=== PATIENT | female | born 1990 | race Hispanic/Latino ===

== ENCOUNTER 2020-09-19 16:49 | Outpatient (CLI) | payer MEDICAID, OTHER ==
[2020-09-19 17:40] LABS: Bilirubin,Urine NEG (Negative); Blood,Urine NEG (Negative); Color,Urine Straw (Yellow); Mucus,Urine FEW /HPF; Protein,Urine <15 mg/dL mg/dL (Negative); Urobilinogen,Urine < 2.0 mg/dL (<2.0); WBC,Urine < 1.0 /HPF (0.0-6.0)
[2020-09-19 17:46] VITALS: BP 127/67
[2020-09-19] MEDS ORDERED: LACTATED RINGERS 1,000 ML IV SCH (18:00)
[2020-09-19] MEDS ORDERED: TERBUTALINE 1 MG/1 ML INJ ONE (18:51)
[2020-09-19] MEDS ORDERED: TERBUTALINE 1 MG/1 ML INJ SUB-Q ONE (18:55)
[2020-09-19] MEDS ORDERED: ACETAMINOPHEN 500 MG TAB PO ONE (20:31)
== END 2020-09-19 20:05 | disposition home or self-care (01) ==
LOC: APU 16:49 → TRG 16:49
PROVIDERS: ATTEND Obstetrics & Gynecology
DX: O62.9 Abnormality of forces of labor, unspecified (principal); O99.513 Diseases of the respiratory system complicating pregnancy, third trimester; J45.909 Unspecified asthma, uncomplicated; O99.343 Other mental disorders complicating pregnancy, third trimester; F41.9 Anxiety disorder, unspecified; F32.9 Major depressive disorder, single episode, unspecified; Z87.891 Personal history of nicotine dependence; Z3A.29 29 weeks gestation of pregnancy
CPT/HCPCS: 36415; 59025; 81001; 84112; 96361; 96374; J3105; J7120; 96360; 96372

== ENCOUNTER 2020-09-26 22:03 | Outpatient (CLI) | payer MEDICAID ==
[2020-09-26 22:41] VITALS: BP 103/57
[2020-09-26 23:39] LABS: Bacteria,Urine 1+ /HPF (Negative); Bilirubin,Urine NEG (Negative); Blood,Urine NEG (Negative); Color,Urine Yellow (Yellow); Mucus,Urine FEW /HPF; Protein,Urine <15 mg/dL mg/dL (Negative); Urobilinogen,Urine < 2.0 mg/dL (<2.0)
== END 2020-09-27 00:50 | disposition home or self-care (01) ==
LOC: TRG 22:03 → APU 22:04 → TRG 09-27 00:50
PROVIDERS: ATTEND Obstetrics & Gynecology
DX: Z34.93 Encounter for supervision of normal pregnancy, unspecified, third trimester (principal); Z3A.30 30 weeks gestation of pregnancy
CPT/HCPCS: 36415; 59025; 81001; 82731

== ENCOUNTER 2020-10-29 11:30 | Outpatient (CLI) | payer MEDICAID ==
[2020-10-29] MEDS ORDERED: LACTATED RINGERS 500 ML IV ONE (12:17)
[2020-10-29 13:12] VITALS: BP 107/56
[2020-10-29 13:38] LABS: Basophils % (Auto) 0.3 % (0.0-1.8); Eosinophils # (Auto) 0.1 K/mm3 (0.0-0.4); Eosinophils % (Auto) 0.5 % (0.0-4.3); Hematocrit 29.5 % (30.3-42.9); Hemoglobin 9.6 gm/dl (10.1-14.3); Lymphocytes # (Auto) 1.7 K/mm3 (1.2-5.4); Lymphocytes % (Auto) 14.1 % (13.4-35.0); Mean Corpuscular HGB Conc 33 % (30-34); Mean Corpuscular Volume 79 fl (79-97); Monocytes # (Auto) 0.8 K/mm3 (0.0-0.8); Monocytes % (Auto) 6.6 % (0.0-7.3); Platelet Count 305 K/mm3 (140-440); Red Blood Count 3.74 M/mm3 (3.65-5.03); Red Cell Distribution Width 14.7 % (13.2-15.2)
--- NOTE | 2020-10-29 13:39 | XRay Report ---
CHEST 1 VIEW 10/29/2020 12:31 PM INDICATION / CLINICAL INFORMATION: chest pain with coughing. COMPARISON: None available. FINDINGS: SUPPORT DEVICES: None. HEART / MEDIASTINUM: No significant abnormality. LUNGS / PLEURA: No significant pulmonary or pleural abnormality. No pneumothorax. ADDITIONAL FINDINGS: No significant additional findings. IMPRESSION: 1. No acute findings. Signer Name: Marcelo Small MD Signed: 10/29/2020 1:34 PM Workstation Name: [id number]
[2020-10-29 13:42] LABS: Bacteria,Urine 2+ /HPF (Negative); Bilirubin,Urine NEG (Negative); Blood,Urine NEG (Negative); Color,Urine Colorless (Yellow); Protein,Urine <15 mg/dL mg/dL (Negative); Urobilinogen,Urine < 2.0 mg/dL (<2.0)
[2020-10-29 13:45] LABS: WBC,Urine < 1.0 /HPF (0.0-6.0)
== END 2020-10-29 13:40 | disposition home or self-care (01) ==
LOC: APU 11:30 → TRG 11:30 → APU 11:41 → TRG 13:40
PROVIDERS: ATTEND Obstetrics & Gynecology
DX: Z34.93 Encounter for supervision of normal pregnancy, unspecified, third trimester (principal); Z3A.35 35 weeks gestation of pregnancy
CPT/HCPCS: 36415; 59025; 71045; 81001; 85025

== ENCOUNTER 2020-11-16 16:14 | Outpatient (CLI) | payer MEDICAID | END 2020-11-16 19:20 | disposition home or self-care (01) | LOC: TRG 16:14 → APU 16:57 | CPT/HCPCS: 59025 ==

== ENCOUNTER 2020-11-25 13:00 | Outpatient (CLI) | payer MEDICAID ==
[2020-11-25 13:55] VITALS: BP 112/74
--- NOTE | 2020-11-25 15:54 | Event Note ---
Date: 11/25/20 Pt request to be examined by this provider and not the system admin or the RN in [place]. Exam is 360/-2 essentially unchanged from office visit 4 days ago. BPP is now 10/10 with JANNY of 12 on prelim readings. Will d/c home with labor precautions. Sono and exam d/w pt. audience coordinator as well as the Equipment Maint Tech [place] aware of pt exam and d/c to home.
--- NOTE | 2020-11-25 16:13 | Ultrasound Report ---
ULTRASOUND BIOPHYSICAL PROFILE INDICATION / CLINICAL INFORMATION: Pelvic pain in female. well-being evaluation COMPARISON: None available. FINDINGS: BREATHING MOVEMENT = 2 GROSS BODY MOVEMENT = 2 TONE = 2 QUALITATIVE AMNIOTIC FLUID VOLUME = 2 TOTAL BIOPHYSICAL SCORE = 12/16 AMNIOTIC FLUID INDEX (cm) = 12.2 PRESENTATION: Cephalic. HEART RATE (beats per minute): 131 IMPRESSION: 1. biophysical profile = 12/16 ULTRASOUND OBSTETRIC Indication: Pelvic pain in Findings: There is a single intrauterine . BPD = 8.3 cm = 33 weeks, 2 day(s). Head circumference = 32 cm = 35 weeks, 5 day(s). Abdominal circumference = 29.6 cm = 33 weeks, 4 day(s). Femur length = 6.9 cm = 35 weeks, 4 day(s). Overall estimated sonographic age = 34 weeks, 4 day(s). heart rate is 131 beats per minute. Estimated weight is 2409 grams position is cephalic. Cervix appears closed with a length of 1.8 cm and is decreased. movement is present. Impression: 1. Single living intrauterine with estimated sonographic age of 34 weeks, 4 day(s). 2. Cervical length of only 1.8 cm Signer Name: Owen Sullivan MD Signed: 11/25/2020 4:08 PM Workstation Name: [id number]
== END 2020-11-25 15:55 | disposition home or self-care (01) ==
LOC: TRG 13:00 → APU 13:02 → TRG 15:55
PROVIDERS: ATTEND Obstetrics & Gynecology
DX: O47.1 False labor at or after 37 completed weeks of gestation (principal); O42.919 Preterm premature rupture of membranes, unspecified as to length of time between rupture and onset of labor, unspecified trimester; Z3A.38 38 weeks gestation of pregnancy
CPT/HCPCS: 36415; 59025; 76816; 76819; 84112

== ENCOUNTER 2020-12-05 13:43 | Inpatient (IN) | payer MEDICAID ==
[2020-12-05] MEDS ORDERED: LOPERAMIDE 2 MG CAP PO PRN (13:56)
[2020-12-05] MEDS ORDERED: LIDOCAINE (2%) 20 MG/1 ML VIAL 20 ML MDV INFILTRATI ONE (13:56)
[2020-12-05] MEDS ORDERED: OXYTOCIN 10 UNIT/1 ML INJ IM PRN (13:56)
[2020-12-05] MEDS ORDERED: CARBOPROST TROMETHAMINE 250 MCG/1 ML INJ IM PRN (13:56)
[2020-12-05] MEDS ORDERED: MINERAL OIL 30 ML ORAL LIQD PO PRN (13:56)
[2020-12-05] MEDS ORDERED: METHYLERGONOVINE MALEATE 0.2 MG/ML VIAL IM PRN (13:56)
[2020-12-05] MEDS ORDERED: miSOPROStol 200 MCG TAB PR PRN (13:56)
[2020-12-05] MEDS ORDERED: ePHEDrine SULFATE 50 MG/1 ML INJ IV PRN ×2 (13:56→16:26)
[2020-12-05] MEDS ORDERED: TERBUTALINE 1 MG/1 ML INJ SUB-Q PRN (13:56)
[2020-12-05] MEDS ORDERED: fentaNYL 100 MCG/2 ML INJ IV ONE (13:56)
[2020-12-05] MEDS ORDERED: OXYTOCIN DRIP 30 UNITS/500 ML BAG IV SCH ×3 (14:00→23:00)
--- NOTE | 2020-12-05 14:17 | History and Physical Report ---
History of Present Illness Date of examination: 12/05/20 Date of admission: 12/05/20 13:43 Chief complaint: contractions History of present illness: Pt presents c/o contractions for weeky visit. She was noted to be 4/60/-1 to 0 in the office. She was sent over for delivery. EDC Confirmation: 12/03/2020 Gestational Age: 40.2 weeks Past History : 5 Term Births: 1 Premature Births: 0 Living Children: 1 Para: 1 Mult. Births: 0 Prev : 0 Prev. attempt? 0 Aborta: 3 Elect. Ab: 0 Spont. Ab: 3 Ectopics: 0 # 1 Delivery date: 2007 Weeks Gestation: 4 Delivery type: SAB Comments: exp management # 2 Delivery date: 2015 Weeks Gestation: 6 Delivery type: SAB Comments: exp management # 3 Delivery date: 2017 Weeks Gestation: 39+4 labor: no Delivery type: Hours of labor: 6 Anesthesia type: epidural Delivery location: [place] Infant Sex: Female weight: 6#9oz Name: Bowen Comments: no complications # 4 Delivery date: 2019 Weeks Gestation: 5 Delivery type: SAB Comments: exp management Risk Factors: Smoked Tobacco Use: Former smoker Cigarettes: Yes Year quit: 2015 Years Since Last Quit: 6 Smokeless Tobacco Use: Never Passive smoke exposure: no Drug use: no HIV high-risk behavior: no Alcohol use: no Exercise: no 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 of genital herpes: no Partner hx. of genital herpes: no Rash, Viral, or Febrile illness since last LMP? no Varicella/Chicken Pox Status: Previous Disease Genetic History Congenital Heart Defect: Mom: no Dad: no Rashad Disease: Mom: no Dad: no Thalassemia Mom: no Dad: no Neural Tube Defect Mom: no Dad: no Down's Syndrome Mom: no Dad: no Wicho-Sachs Mom: no Dad: no Sickle Cell Disease/Trait Mom: no Dad: no Hemophilia Mom: no Dad: no Muscular Dystrophy Mom: no Dad: no Cystic Fibrosis Mom: no Dad: no [place] Chorea Mom: no Dad: no Mental Retardation Mom: no Dad: no Fragile X Mom: no Dad: no Other Genetic/Chromosomal Disorder Mom: no Dad: no Child w/other defect Mom: no Dad: no Enviromental Exposures Xray Exposure: no Medication, drug, or alcohol use since LMP: no Chemical/Other Exposure: no Exposure to Cat Liter: yes Hx of Parvovirus (Fifth Disease): no Occupational Exposure to Children: none Current Allergies: * LATEX (Critical) * VANCOMYCIN (Critical) Past History Past Medical History: other (see hpi) Past Surgical History: other (see hpi) Family/Genetic History: other (see hpi) Social history: other (see hpi) - Obstetrical History Expected Date of Delivery: 12/03/20 Actual Gestation: 40 Week(s) 2 Day(s) : 5 Para: 1 Number of Living Children: 1 Medications and Allergies Allergies Allergy/AdvReac Type Severity Reaction Status Date / Time prednisone Allergy Hives Verified 11/16/20 16:57 sertraline [From Zoloft] Allergy Hives Verified 11/16/20 16:57 Latex, Natural Rubber AdvReac Severe Rash Verified 09/19/20 17:25 vancomycin AdvReac Severe Anaphylaxis Verified 09/19/20 17:27 Home Medications Medication Instructions Recorded Confirmed Last Taken Type Levothyroxine 150 mcg PO QDAY 09/26/20 09/26/20 09/25/20 21:00 History Pepcid 20 mg PO QDAY 09/26/20 09/26/20 09/25/20 21:00 History Active Meds: Active Medications Carboprost Tromethamine (Carboprost Tromethamine 250 Mcg/1 Ml Inj) 250 mcg IM ONCE PRN PRN Reason: Uterine Bleeding Ephedrine Sulfate (Ephedrine Sulfate 50 Mg/1 Ml Inj) 10 mg IV Q2M PRN PRN Reason: Hypotension Fentanyl (Fentanyl 100 Mcg/2 Ml Inj) 100 mcg IV ONCE ONE Stop: 12/05/20 13:57 Oxytocin/Sodium Chloride (Pitocin/Ns 30 Unit/500ml) 30 units in 500 mls @ 4 mls/hr IV TITR JOSEF; Protocol Lactated Ringer's (Lactated Ringers) 1,000 mls @ 125 mls/hr IV DIRECT JOSEF Oxytocin/Sodium Chloride (Pitocin/Ns 30 Unit/500ml) 30 units in 500 mls @ 40 mls/hr IV TITR JOSEF; Protocol Lidocaine (Lidocaine (2%) 20 Mg/1 Ml Vial 20 Ml Mdv) 20 ml INFILTRATI ONCE ONE Stop: 12/05/20 13:57 Loperamide HCl (Loperamide 2 Mg Cap) 2 mg PO ONCE PRN PRN Reason: give with Hemabate Methylergonovine Maleate (Methylergonovine Maleate 0.2 Mg/Ml Vial) 0.2 mg IM ONCE PRN PRN Reason: Uterine Bleeding Mineral Oil (Mineral Oil 30 Ml Oral Liqd) 30 ml PO QHS PRN PRN Reason: Constipation Misoprostol (Misoprostol 200 Mcg Tab) 800 mcg [place] ONCE PRN PRN Reason: Uterine Bleeding Oxytocin (Oxytocin 10 Unit/1 Ml Inj) 10 unit IM ONCE PRN PRN Reason: Uterine Bleeding Terbutaline Sulfate (Terbutaline 1 Mg/1 Ml Inj) 0.25 mg SUB-Q ONCE PRN PRN Reason: Hyperstimulation/Hypertonicity Review of Systems All systems: negative - Physical Exam Cardiovascular: Normal S1, Normal S2 Lungs: Positive: Clear to auscultation Abdomen: Positive: normal appearance, soft Genitourinary (Female): Positive: normal external genitalia, normal perenium Vulva: both: normal Deep Tendon Reflex Grade: Normal +2 - Obstetrical FHR: auscultation normal Cervical Dilatation: 4 Cervical Effacement Percentage: 60 station: -1 Uterine Contraction Pattern: Regular Uterine Tone Measurement Phase: Resting Results All other labs normal. Assessment and Plan - Patient Problems (1) 40 weeks gestation of Current Visit: Yes Status: Acute (2) Active labor at term Current Visit: Yes Status: Acute
[2020-12-05] MEDS: LACTATED RINGERS 1,000 ML IV SCH ×3 (16:03→17:36)
[2020-12-05 16:11] LABS: Hematocrit 29.8 % (30.3-42.9); Hemoglobin 9.6 gm/dl (10.1-14.3); Mean Corpuscular HGB Conc 32 % (30-34); Mean Corpuscular Volume 76 fl (79-97); Platelet Count 276 K/mm3 (140-440); Red Blood Count 3.95 M/mm3 (3.65-5.03); Red Cell Distribution Width 16.3 % (13.2-15.2)
[2020-12-05] MEDS ORDERED: diphenhydrAMINE 50 MG/ML VIAL IV PRN (16:26)
[2020-12-05] MEDS ORDERED: NalbUPHINE 10 MG/1 ML INJ IV PRN (16:26)
[2020-12-05] MEDS ORDERED: ONDANSETRON 4 MG/2 ML INJ IV PRN ×2 (16:26→22:01)
[2020-12-05] MEDS ORDERED: NALOXONE 2 MG/2 ML INJ IV PRN (16:26)
[2020-12-05] MEDS ORDERED: LACTATED RINGERS 250 ML IV SOLN IV ONE (16:26)
--- NOTE | 2020-12-05 16:57 | Anesthesia Consultation ---
Anesthesia Consult and Med Hx Date of service: 12/05/20 - Airway Anesthetic Teeth Evaluation: Good ROM Head & Neck: Adequate Mental/Hyoid Distance: Adequate Mallampati Class: Class II Intubation Access Assessment: Probably Good - Pulmonary Exam CTA: Yes - Cardiac Exam Cardiac Exam: RRR - Pre-Operative Health Status ASA Pre-Surgery Classification: ASA2 Proposed Anesthetic Plan: Epidural - Pulmonary Hx Smoking: No Hx Asthma: Yes COPD: No Hx Sleep Apnea: No - Cardiovascular System Hx Hypertension: No Hx Heart Attack/AMI: No Hx Angina: No - Central Nervous System Hx Seizures: No Hx Psychiatric Problems: No - Gastrointestinal Hx Gastroesophageal Reflux Disease: No - Endocrine Hx Renal Disease: No Hx End Stage Renal Disease: No Hx Liver Disease: No Hx Insulin Dependent Diabetes: No Hx Non-Insulin Dependent Diabetes: No Hx Hypothyroidism: Yes Hx Hyperthyroidism: No - Hematic Hx Anemia: No Hx Sickle Cell Disease: No - Other Systems Hx Alcohol Use: No
--- NOTE | 2020-12-05 16:59 | Progress Note ---
Labor Epidural - Labor Epidural Start Time: 16:43 Stop Time: 16:54 Performed by:: GREGORY ADAMS (Fabio Groves [facility]) Procedure: Patient is requesting epidural for labor and pain. H&P, labs were reviewed. Patient IDed, H&P reviewed, all questions and concerns were answered, and consent was signed. Timeout was performed at bedside. Patient in sitting position. Sterile prep and drape was performed. 3ml of 1% lidocaine skin wheal at L[3]- L [4]. 18-gauge Continuent epidural needle was advanced to loss of resistance with air technique 6cm. Negative CSF negative blood. Epidural catheter advanced to [12] centimeters. [negative] Aspiration [negative] test dose. Sterile dressing applied. Patient tolerated procedure.
[2020-12-05] MEDS ORDERED: fentaNYL-BUPIV 2 MCG/ML-0.125% 200 MCG/100 ML BAG EPIDURAL SCH (17:00)
--- NOTE | 2020-12-05 17:55 | Event Note ---
Date: 12/05/20 Provider at bedside. cx now as per RN and pt had SROM about 2 hours ago. Pitocin has not been started due to pt cameron regularly on her own. Epidural in place and pt states she is comfortable at this time. Pt advised that we will monitor how she progresses and if the contractions space out we will start pitocin at this time. Pt and expressed understanding and questions were addressed and answered.
--- NOTE | 2020-12-05 19:50 | Progress Note ---
Assessment and Plan A: 30 y.o. @ 40+ wks, in active labor. Cervical exam: 9.5/100/0. AROM forebag for clear fluid. P: Continue with expectant management. Anticipate . Subjective - Subjective Date of service: 12/05/20 (Pt comfortable with epidural.) Principal diagnosis: IUP @ 40+ weeks, active labor. Patient reports: other (Pt feeling some pressure.) Objective - Vital Signs Vital Signs: Vital Signs - 12hr 12/05/20 12/05/20 12/05/20 14:20 14:21 14:23 Temperature 98.2 F Pulse Rate 98 H 87 91 H Respiratory 24 Rate Blood Pressure 122/74 Blood Pressure 122/74 [Right] O2 Sat by Pulse 97 98 Oximetry O2 Sat by Pulse Oximetry [ Anterior Bilateral Throughout] 12/05/20 12/05/20 12/05/20 14:25 14:30 14:35 Temperature Pulse Rate 89 84 86 Respiratory Rate Blood Pressure Blood Pressure [Right] O2 Sat by Pulse 98 98 97 Oximetry O2 Sat by Pulse 97 Oximetry [ Anterior Bilateral Throughout] 12/05/20 12/05/20 12/05/20 14:40 14:45 14:50 Temperature Pulse Rate 91 H 89 95 H Respiratory Rate Blood Pressure Blood Pressure [Right] O2 Sat by Pulse 98 98 98 Oximetry O2 Sat by Pulse Oximetry [ Anterior Bilateral Throughout] 12/05/20 12/05/20 12/05/20 14:51 14:55 15:00 Temperature Pulse Rate 85 91 H 92 H Respiratory Rate Blood Pressure 135/78 Blood Pressure [Right] O2 Sat by Pulse 98 98 Oximetry O2 Sat by Pulse Oximetry [ Anterior Bilateral Throughout] 12/05/20 12/05/20 12/05/20 15:05 15:10 15:15 Temperature Pulse Rate 96 H 89 91 H Respiratory Rate Blood Pressure Blood Pressure [Right] O2 Sat by Pulse 98 98 98 Oximetry O2 Sat by Pulse Oximetry [ Anterior Bilateral Throughout] 12/05/20 12/05/20 12/05/20 15:20 15:21 15:25 Temperature Pulse Rate 99 H 80 100 H Respiratory Rate Blood Pressure 132/77 Blood Pressure [Right] O2 Sat by Pulse 98 100 Oximetry O2 Sat by Pulse Oximetry [ Anterior Bilateral Throughout] 12/05/20 12/05/20 12/05/20 15:28 15:30 15:35 Temperature Pulse Rate 65 90 85 Respiratory Rate Blood Pressure Blood Pressure [Right] O2 Sat by Pulse 85 100 98 Oximetry O2 Sat by Pulse Oximetry [ Anterior Bilateral Throughout] 12/05/20 12/05/20 12/05/20 15:40 15:45 15:50 Temperature Pulse Rate 94 H 89 91 H Respiratory Rate Blood Pressure Blood Pressure [Right] O2 Sat by Pulse 98 100 100 Oximetry O2 Sat by Pulse Oximetry [ Anterior Bilateral Throughout] 12/05/20 12/05/20 12/05/20 15:52 15:55 15:59 Temperature Pulse Rate 92 H 85 78 Respiratory Rate Blood Pressure 133/85 Blood Pressure [Right] O2 Sat by Pulse 99 94 Oximetry O2 Sat by Pulse Oximetry [ Anterior Bilateral Throughout] 12/05/20 12/05/20 12/05/20 16:00 16:05 16:06 Temperature Pulse Rate 80 74 65 Respiratory Rate Blood Pressure Blood Pressure [Right] O2 Sat by Pulse 100 98 84 Oximetry O2 Sat by Pulse Oximetry [ Anterior Bilateral Throughout] 12/05/20 12/05/20 12/05/20 16:10 16:15 16:16 Temperature Pulse Rate 89 82 82 Respiratory Rate Blood Pressure Blood Pressure [Right] O2 Sat by Pulse 96 97 94 Oximetry O2 Sat by Pulse Oximetry [ Anterior Bilateral Throughout] 12/05/20 12/05/20 12/05/20 16:20 16:22 16:23 Temperature Pulse Rate 85 69 Respiratory Rate Blood Pressure 120/61 Blood Pressure [Right] O2 Sat by Pulse 84 84 Oximetry O2 Sat by Pulse Oximetry [ Anterior Bilateral Throughout] 12/05/20 12/05/20 12/05/20 16:25 16:33 16:38 Temperature Pulse Rate 83 101 H 92 H Respiratory Rate Blood Pressure Blood Pressure [Right] O2 Sat by Pulse 95 90 100 Oximetry O2 Sat by Pulse Oximetry [ Anterior Bilateral Throughout] 12/05/20 12/05/20 12/05/20 16:43 16:44 16:45 Temperature Pulse Rate 94 H 96 H 93 H Respiratory Rate Blood Pressure 132/74 Blood Pressure [Right] O2 Sat by Pulse 100 91 Oximetry O2 Sat by Pulse Oximetry [ Anterior Bilateral Throughout] 12/05/20 12/05/20 12/05/20 16:48 16:53 16:55 Temperature Pulse Rate 96 H 101 H 100 H Respiratory Rate Blood Pressure 137/72 139/78 Blood Pressure [Right] O2 Sat by Pulse 100 99 Oximetry O2 Sat by Pulse Oximetry [ Anterior Bilateral Throughout] 12/05/20 12/05/20 12/05/20 16:57 16:58 16:59 Temperature Pulse Rate 98 H 96 H 108 H Respiratory Rate Blood Pressure 128/64 112/62 Blood Pressure [Right] O2 Sat by Pulse 100 Oximetry O2 Sat by Pulse Oximetry [ Anterior Bilateral Throughout] 12/05/20 12/05/20 12/05/20 17:02 17:03 17:05 Temperature Pulse Rate 108 H 106 H 107 H Respiratory Rate Blood Pressure 120/59 124/58 118/59 Blood Pressure [Right] O2 Sat by Pulse 100 94 Oximetry O2 Sat by Pulse Oximetry [ Anterior Bilateral Throughout] 12/05/20 12/05/20 12/05/20 17:07 17:08 17:09 Temperature Pulse Rate 114 H 107 H 86 Respiratory Rate Blood Pressure 113/61 118/65 Blood Pressure [Right] O2 Sat by Pulse 99 Oximetry O2 Sat by Pulse Oximetry [ Anterior Bilateral Throughout] 12/05/20 12/05/20 12/05/20 17:11 17:13 17:18 Temperature Pulse Rate 90 94 H 80 Respiratory Rate Blood Pressure 109/63 115/63 Blood Pressure [Right] O2 Sat by Pulse 99 98 Oximetry O2 Sat by Pulse Oximetry [ Anterior Bilateral Throughout] 12/05/20 12/05/20 12/05/20 17:23 17:28 17:33 Temperature Pulse Rate 89 76 73 Respiratory Rate Blood Pressure Blood Pressure [Right] O2 Sat by Pulse 99 99 99 Oximetry O2 Sat by Pulse Oximetry [ Anterior Bilateral Throughout] 12/05/20 12/05/20 12/05/20 17:38 17:43 17:44 Temperature Pulse Rate 85 90 86 Respiratory Rate Blood Pressure 119/58 Blood Pressure [Right] O2 Sat by Pulse 99 99 Oximetry O2 Sat by Pulse Oximetry [ Anterior Bilateral Throughout] 12/05/20 12/05/20 12/05/20 17:48 17:53 17:58 Temperature Pulse Rate 88 93 H 85 Respiratory Rate Blood Pressure Blood Pressure [Right] O2 Sat by Pulse 99 99 100 Oximetry O2 Sat by Pulse Oximetry [ Anterior Bilateral Throughout] 12/05/20 12/05/20 12/05/20 18:03 18:08 18:13 Temperature Pulse Rate 85 82 86 Respiratory Rate Blood Pressure Blood Pressure [Right] O2 Sat by Pulse 99 99 95 Oximetry O2 Sat by Pulse Oximetry [ Anterior Bilateral Throughout] 12/05/20 12/05/20 12/05/20 18:14 18:18 18:19 Temperature Pulse Rate 90 70 73 Respiratory Rate Blood Pressure 93/51 Blood Pressure [Right] O2 Sat by Pulse 100 93 Oximetry O2 Sat by Pulse Oximetry [ Anterior Bilateral Throughout] 12/05/20 12/05/20 12/05/20 18:23 18:28 18:33 Temperature Pulse Rate 69 93 H 72 Respiratory Rate Blood Pressure Blood Pressure [Right] O2 Sat by Pulse 99 100 100 Oximetry O2 Sat by Pulse Oximetry [ Anterior Bilateral Throughout] 12/05/20 12/05/20 12/05/20 18:38 18:43 18:44 Temperature Pulse Rate 80 76 76 Respiratory Rate Blood Pressure 94/55 Blood Pressure [Right] O2 Sat by Pulse 100 100 Oximetry O2 Sat by Pulse Oximetry [ Anterior Bilateral Throughout] 12/05/20 12/05/20 12/05/20 18:48 18:51 18:53 Temperature Pulse Rate 84 64 85 Respiratory Rate Blood Pressure 106/59 Blood Pressure [Right] O2 Sat by Pulse 100 100 Oximetry O2 Sat by Pulse Oximetry [ Anterior Bilateral Throughout] 12/05/20 12/05/20 12/05/20 18:58 19:03 19:08 Temperature Pulse Rate 79 80 66 Respiratory Rate Blood Pressure Blood Pressure [Right] O2 Sat by Pulse 100 100 100 Oximetry O2 Sat by Pulse Oximetry [ Anterior Bilateral Throughout] 12/05/20 12/05/20 12/05/20 19:13 19:14 19:15 Temperature Pulse Rate 77 78 85 Respiratory Rate Blood Pressure 103/62 Blood Pressure [Right] O2 Sat by Pulse 100 85 Oximetry O2 Sat by Pulse Oximetry [ Anterior Bilateral Throughout] 12/05/20 12/05/20 12/05/20 19:18 19:23 19:28 Temperature Pulse Rate 71 81 79 Respiratory Rate Blood Pressure Blood Pressure [Right] O2 Sat by Pulse 100 100 99 Oximetry O2 Sat by Pulse Oximetry [ Anterior Bilateral Throughout] 12/05/20 12/05/20 12/05/20 19:33 19:38 19:41 Temperature Pulse Rate 67 88 36 L Respiratory Rate Blood Pressure Blood Pressure [Right] O2 Sat by Pulse 100 100 88 Oximetry O2 Sat by Pulse Oximetry [ Anterior Bilateral Throughout] 12/05/20 12/05/20 19:43 19:45 Temperature Pulse Rate 86 85 Respiratory Rate Blood Pressure 109/72 Blood Pressure [Right] O2 Sat by Pulse 100 Oximetry O2 Sat by Pulse Oximetry [ Anterior Bilateral Throughout] - Exam Narrative Exam: Upon assessing patient, membranes noted at the introitus. AROM for clear fluid. Cervical exam: 9.5/100/0. Breasts: deferred Cardiovascular: Regular rate Lungs: Normal air movement Abdomen: Present: normal appearance, soft Vulva: both: normal FHR: category 1 Uterine Contraction Monitor Mode: External Cervical Dilatation: 9.5 Cervical Effacement Percentage: 100 station: 0 Uterine Contraction Pattern: Regular Uterine Tone Measurement Phase: Resting Uterine Contraction Intensity: Moderate Extremities: normal - Labs Labs: Abnormal Labs 12/05/20 15:40 Hgb 9.6 L Hct 29.8 L MCV 76 L MCH 24 L RDW 16.3 H Laboratory Results - last 24 hr 12/05/20 12/05/20 15:40 15:40 WBC 9.1 RBC 3.95 Hgb 9.6 L Hct 29.8 L MCV 76 L MCH 24 L MCHC 32 RDW 16.3 H Plt Count 276 Blood Type A POSITIVE Antibody Screen Negative
--- NOTE | 2020-12-05 20:42 | Procedure Note ---
OB Delivery Note - Delivery Date of Delivery: 12/05/20 Hand Tapper: SHANTI OCONNELL Estimated blood loss: 200cc - Vaginal Delivery presentation: vertex Delivery position: OA Intrapartum events: none Delivery induction: none Delivery augmentation: rupture of membranes Delivery monitor: external FHT, external uterine Route of delivery: Delivery placenta: spontaneous Delivery cord: 3 umbilical vessels Episiotomy: none Delivery laceration: 1st degree (Hemostatic, no repair needed. ), other (Small periurethral laceration, hemostatic, no repair needed) Anesthesia: epidural Delivery comments: of viable female infant. to mother abdomen for skin to skin. Cord clamped after cessation of pulse, cut by FOC. Spontaneous delivery of placenta, intact, complete, 3 vessels noted. Perineum and vagina inspected. 1st degree perineum and small periurethral laceration noted. Both hemostatic, no bleeding, no repair needed. Fundus firm. EBL: 200ml. Apgars 8,9. Infant weight 6-4. Instruments and sponges counted X2 with RN and correct X2. Infant and mother left in stable condition in care of RN. - A at 1 minute: 8 at 5 minutes: 9 Gender: Female (Ruel Bullock, 6-4)
[2020-12-05] MEDS ORDERED: PROMETHAZINE 25 MG RECT SUPP PR PRN (22:01)
[2020-12-05] MEDS ORDERED: LANOLIN/ZINC/DIMETHICONE (LANSINOH) 7 GM TP PRN ×2 (22:01)
[2020-12-05] MEDS ORDERED: BENZOCAINE/MENTHOL 20/0.5% TOP SPRAY 56 GM TP PRN (22:01)
[2020-12-05] MEDS ORDERED: WITCH HAZEL/ GLYCERIN PAD TP PRN (22:01)
[2020-12-05] MEDS ORDERED: PROMETHAZINE 25 MG TAB PO PRN (22:01)
[2020-12-05] MEDS ORDERED: diphenhydrAMINE 25 MG CAP PO PRN (22:01)
[2020-12-05] MEDS ORDERED: MAGNESIUM HYDROXIDE (MOM) ORAL LIQD UDC PO PRN (22:01)
[2020-12-05] MEDS ORDERED: oxyCODONE /ACETAMINOPHEN 5-325MG TAB PO PRN (22:01)
[2020-12-05] MEDS ORDERED: ACETAMINOPHEN 500 MG TAB PO PRN (22:01)
[2020-12-05] MEDS: IBUPROFEN 800 MG TAB PO SCH (23:49)
[2020-12-06] MEDS: IBUPROFEN 800 MG TAB PO SCH ×5 (03:07→17:50)
[2020-12-06] MEDS ORDERED: TETANUS,DIPH,PERTUSS(ACELL) VACCINE 0.5 ML SYRINGE IM ONE (06:00)
--- NOTE | 2020-12-06 07:19 | Discharge Summary ---
Providers - Providers Date of Admission: 12/05/20 13:43 Date of discharge: 12/06/20 (pt desires d/c @ 24hr) Attending physician: IRASEMA GALICIA 12/06/20 07:00 Consult to Death Claim Clerk [CONS] Routine Reason For Exam: Primary care physician: LAQUITA ALVAREZ Hospitalization Reason for admission: active labor Delivery: Episiotomy: none Laceration: none Incision: normal Other procedures: none complications: none Discharge diagnosis: IUP at term delivered baby: female Hospital course: uncomplicated vaginal delivery Pt awake caring for NB. VSS FF below umb Lochia small Perineum intact. H&H pending. Doing well s/p vag delivery. P: d/c today with instructions Pt is aware d/c is contingent upon NB d/c and that her H&H is stable. All concerns addressed. Condition at discharge: Good Disposition: DC-01 TO HOME OR SELFCARE - Discharge Diagnoses (1) Spontaneous vaginal delivery Status: Acute Comment: RTO 4 weeks PP Care Plan - Provider Discharge Summary Activity: routine, no sex for 6 weeks, no heavy lifting 4 weeks, no strenuous exercise Diet: routine Instructions: routine Additional instructions: [] Smoking cessation referral if applicable(refer to patient education folder for contact #) [] Refer to [facility] Booklet Call your doctor immediately for: * Fever > 100.5 * Heavy vaginal bleeding ( >1 pad per hour) * Severe persistent headache * Shortness of breath * Reddened, hot, painful area to leg or breast * Drainage or odor from incision. * Keep incision clean and dry at all times and follow doctor's instructions regarding bathing/showering - Follow up plan Follow up: LAQUITA ALVAREZ MD [Primary Care Provider] - 01/07/21 (Congratulations! Please call [phone] to schedule your visit in 4 weeks. Motrin/ibuprofen for pain/cramping. Continue your vitamins. Increase your dietary iron. Call with any concerns.)
[2020-12-06] MEDS ORDERED: PRENATAL VIT27-FE FUMARATE-FOLIC ACID VIT TAB PO SCH (10:00)
[2020-12-06] MEDS ORDERED: DOCUSATE SODIUM 100 MG CAP PO SCH (10:00)
--- NOTE | 2020-12-06 10:20 | Post Anesthesia Evaluation ---
- Post Anesthesia Evaluation Patient Participated: Yes Airway Patent: Yes Stable Respiratory Function: Yes Nausea/Vomiting: No Temp > 96.8F: Yes Pain Manageable: Yes Adequeate Hydration: Yes Anesthesia Complications: No Block Receding Appropriately: Yes Patient on Ventilator: No
[2020-12-06 10:31] LABS: Hematocrit 24.8 % (30.3-42.9)
[2020-12-06] MEDS ORDERED: FERROUS SULFATE 325 MG TAB PO SCH (13:00)
[2020-12-06 20:17] VITALS: BP 114/75
== END 2020-12-06 21:53 | disposition home or self-care (01) | DRG 775 ==
LOC: LD 13:43 → OB 23:35
PROVIDERS: ADMIT Obstetrics & Gynecology; ATTEND Obstetrics & Gynecology
PROC: 10E0XZZ Delivery of Products of Conception, External Approach (ICD-10-PCS; principal; 2020-12-05)
PROC: 3E0R3BZ Introduction of Anesthetic Agent into Spinal Canal, Percutaneous Approach (ICD-10-PCS; 2020-12-05)
PROC: 00HU33Z Insertion of Infusion Device into Spinal Canal, Percutaneous Approach (ICD-10-PCS; 2020-12-05)
PROC: 10907ZC Drainage of Amniotic Fluid, Therapeutic from Products of Conception, Via Natural or Artificial Opening (ICD-10-PCS; 2020-12-05)
PROC: 3E0234Z Introduction of Serum, Toxoid and Vaccine into Muscle, Percutaneous Approach (ICD-10-PCS; 2020-12-06)
DX: O70.0 First degree perineal laceration during delivery (principal); Z3A.40 40 weeks gestation of pregnancy; Z37.0 Single live birth; Z23 Encounter for immunization; Z87.891 Personal history of nicotine dependence; Z88.8 Allergy status to other drugs, medicaments and biological substances; Z88.1 Allergy status to other antibiotic agents; Z91.040 Latex allergy status; O71.82 Other specified trauma to perineum and vulva
CPT/HCPCS: 36415; 85014; 85018; 85027; 86850; 86900; 86901; G0378; J7120